=== PATIENT | male | born 1990 ===

== ENCOUNTER 2017-11-19 18:28 | Inpatient (IN) | payer OTHER ==
[~2017-11-19] VITALS: Ht 182.9 cm; Wt 109.0 kg
[2017-11-19] MEDS ORDERED: HYDROmorphone INJ 1 MG/ML SYR IV PRN (18:45)
--- NOTE | 2017-11-19 18:47 | EMERGENCY ROOM VISIT NOTE ---
History Report prepared by Anastacia: Jeremy Byrd Under the Supervision of: Dr. Reagan Daley M.D. First contact with patient: 18:28 Stated Complaint: FALL/ L LEG FX History of Present Illness The patient is a 27 year old male who presents to the Emergency Room via EMS after breaking his left leg just prior to arrival. The patient reports climbing down a rope pyramid and jumped off at about 3-4 feet high when he landed and the ankle broke. He states the pain is worse with movement. The patient reports he did not hit his head or lose consciousness and he denies neck or back pain. Prior to arrival he received 100mcg of Fentanyl and 4mg of Zofran. Source of History: patient Onset: Just prior to arrival Position: leg (left) Quality: other (fracture) Modifying Factors (Worsening): movement Associated Symptoms: No headache, No neck pain, No back pain Review of Systems See HPI for pertinent positives and negatives. A total of ten systems were reviewed and were otherwise negative. Past Medical & Surgical Medical Problems: (1) Left TIbia fracture (2) No Known Active Medical Problems Family History Patient reports no known family medical history. Social History Smoking Status: Never Smoker Occupation Status: [employer] student Current/Historical Medications No Active Prescriptions or Reported Meds Allergies Coded Allergies: No Known Allergies (Unverified , 11/19/17) Physical Exam Vital Signs Date Time Temp Pulse Resp B/P (MAP) Pulse Ox O2 Delivery O2 Flow Rate FiO2 11/19/17 19:47 94 145/76 100 Room Air 11/19/17 19:29 97 137/82 100 Room Air 11/19/17 19:02 97 11/19/17 18:53 37.3 99 142/86 100 Room Air Physical Exam Physical Exam GENERAL: He is oriented to person, place, and time. He appears well-developed and well-nourished. He does not appear distressed. HENT: Exam performed. Head: Normocephalic and atraumatic. Right Ear: External ear normal. No mastoid tenderness. Left Ear: External ear normal. No mastoid tenderness. Mouth/Throat: The oropharynx is clear and moist. No trismus in the jaw. No dental abscesses or uvula swelling. No oropharyngeal exudate or tonsillar abscesses. EYES: Conjunctivae and EOM are normal. Pupils are equal, round, and reactive to light. Right eye exhibits no discharge. Left eye exhibits no discharge. No scleral icterus. NECK: Normal range of motion. Neck supple. No JVD present. No spinous process tenderness present. No carotid bruit present. No rigidity. No tracheal deviation and normal range of motion present. No Brudzinski's sign and no Kernig 's sign noted. CV: Normal rate, regular rhythm, normal heart sounds and intact distal pulses. There is no peripheral edema. Palpable radial pulses bue. PULM/CHEST: Effort normal and breath sounds normal. No respiratory distress. No stridor. He has no wheezes. He has no rales. Chest Wall: He exhibits no tenderness. ABD: The abdomen is soft. Bowel sounds are normal. He has no distension. No mass is present. There is no tenderness. There is no rebound, no guarding, no Marion's sign and no tenderness at McBurney's point. Rovsig negative. MUSC/SKEL: Obvious deformity in LLE, mild tenting in LLE. Pelvis is stable. No pain on palpation to medial and lateral malleolus of LLE. DP and PT pulses palpable. LYMPH: No cervical adenopathy. NEURO: He is alert and oriented to person, place, and time. He has normal strength. No cranial nerve deficit or sensory deficit. Coordination and gait normal. GCS eye subscore is 4. GCS verbal subscore is 5. GCS motor subscore is 6. Cerebellar tests wnl. SKIN: Skin is warm and dry. He is not diaphoretic. PSYCH: He has a normal mood and affect. Behavior is normal. Judgment and thought content normal. Medical Decision & Procedures ER Provider Diagnostic Interpretation: Radiology results as stated below per my review and radiologist interpretation: L TIBIA/FIBULA 2 VIEWS ROUTINE CLINICAL HISTORY: Left lower leg pain status post trauma COMPARISON: None. DISCUSSION: There are acute fractures involving the mid shafts of the tibia and fibula. The distal fibular fragment is medially displaced by one full shaft width, and there is 12 mm of foreshortening. There is 24 degrees of vertex anterior angulation at the fracture site. The tibial fracture demonstrates 20 degrees of vertex anterior angulation. There is 7 mm of anterior displacement of the distal tibial fracture segment. IMPRESSION: Acute fractures involving the mid shafts of the tibia and fibula with mild vertex anterior angulation. Electronically signed by: Alexey Rogers M.D. 11/19/2017 7:27 PM Dictated Date/Time: 11/19/2017 7:24 PM PELVIS 1 OR 2 VIEW ROUTINE CLINICAL HISTORY: Pelvic pain status post trauma COMPARISON STUDY: No previous studies for comparison. FINDINGS: No fractures are visualized. There are no dislocations. There is no SI joint diastases. There is no symphysis diastases. IMPRESSION: No fractures identified. Electronically signed by: Alexey Rogers M.D. 11/19/2017 7:23 PM Dictated Date/Time: 11/19/2017 7:23 PM L KNEE 2 VIEWS ROUTINE CLINICAL HISTORY: Left knee pain status post trauma COMPARISON: None. DISCUSSION: No acute fractures or dislocations are visualized. THERE IS NO EVIDENCE FOR SOFT TISSUE SWELLING. IMPRESSION: No fractures identified. Electronically signed by: Alexey Rogers M.D. 11/19/2017 7:28 PM Dictated Date/Time: 11/19/2017 7:27 PM L ANKLE 2 VIEWS CLINICAL HISTORY: Left lower leg pain status post trauma COMPARISON: None. DISCUSSION: The superior margin of the film, fractures of the mid shafts of the tibia and fibula are visualized. There is mild vertex anterior angulation. No ankle fractures are visualized. The ankle mortise appears intact. IMPRESSION: 1. No ankle fractures identified 2. Fractures involving the mid shafts of the tibia and fibula. Electronically signed by: Alexey Rogers M.D. 11/19/2017 7:29 PM Dictated Date/Time: 11/19/2017 7:28 PM Medications Administered Medications (Trade) Dose Ordered Sig/Nazia Route Start Time Stop Time Status Last Admin Dose Admin Hydromorphone HCl (Dilaudid Inj) 1 mg ONE PRN IV 11/19/17 18:45 11/19/17 21:21 DC 11/19/17 18:42 1 MG Morphine Sulfate (MoRPHine SULFATE INJ) 4 mg NOW STAT IV 11/19/17 19:28 11/19/17 19:29 DC 11/19/17 20:09 4 MG Fentanyl Citrate (Fentanyl Inj) 100 mcg STK-MED ONCE .ROUTE 11/19/17 19:34 11/19/17 19:35 DC 11/19/17 19:45 100 MCG Dextrose/Sodium Chloride 1,000 ml @ 100 mls/hr Q10H IV 8/25/18 20:07 12/19/17 20:06 11/19/17 21:20 100 MLS/HR ED Course 182: The patient was evaluated in room B4B. A complete history and physical exam was performed. 184: Dilaudid 1mg IV 1904: X-rays show acute fracture of the tibia and fibula. I spoke with Dr. Uli Bateman and he is going to come take a look at the patient. 1927: Morphine Sulfate 4mg IV 1934: Dr. Uli Bateman is at bedside evaluating the patient. Dr. Mcnally states he will reduce the LLE and place the patient in splint. He will admit the patient for surgery tomorrow. 2029: Lower extremity was reduced and splinted by Dr. Mcnally. His vitals are stable. Medical Decision Dr. Uli Bateman is at bedside evaluating the patient. Dr. Mcnally states he will reduce the LLE and place the patient in splint. He will admit the patient for surgery tomorrow. Medication Reconcilliation Current Medication List: was personally reviewed by me Blood Pressure Screening Patient's blood pressure: Elevated blood pressure Blood pressure disposition: Elevated BP felt to be situational Consults Time Called: 1901 Consulting Physician: Dr. Uli Bateman Returned Call: 1904 Discussed the patient's case Dr. Uli Bateman. The patient will be evaluated for further treatment and disposition. Impression Primary Impression: Tibia fracture Additional Impression: Fibula fracture Scribe Attestation The scribe's documentation has been prepared under my direction and personally reviewed by me in its entirety. I confirm that the note above accurately reflects all work, treatment, procedures, and medical decision making performed by me. The chart was completed utilizing [employer] Speech voice recognition software. Grammatical errors, random word insertions, pronoun errors, and incomplete sentences are an occasional consequence of this system due to software limitations, ambient noise, and hardware issues. Any formal questions or concerns about the content, text, or information contained within the body of this dictation should be directly addressed to the physician for clarification. Departure Information Dispostion Being Evaluated By Surgeon Prescriptions No Active Prescriptions or Reported Meds Forms HOME CARE DOCUMENTATION FORM, IMPORTANT VISIT INFORMATION Problem Qualifiers Primary Impression: Tibia fracture Encounter type: initial encounter Tibia location: shaft Fracture type: closed Fracture morphology: other fracture Laterality: unspecified laterality Qualified Codes: S82.299A - Other fracture of shaft of unspecified tibia, initial encounter for closed fracture Additional Impression: Fibula fracture Encounter type: initial encounter Fibula location: shaft Fracture type: closed Fracture morphology: other fracture Laterality: unspecified laterality Qualified Codes: S82.499A - Other fracture of shaft of unspecified fibula, initial encounter for closed fracture
--- NOTE | 2017-11-19 19:24 | DIAGNOSTIC IMAGING REPORT ---
PELVIS 1 OR 2 VIEW ROUTINE CLINICAL HISTORY: Pelvic pain status post trauma COMPARISON STUDY: No previous studies for comparison. FINDINGS: No fractures are visualized. There are no dislocations. There is no SI joint diastases. There is no symphysis diastases. IMPRESSION: No fractures identified. Electronically signed by: Alexey Rogers M.D. 11/19/2017 7:23 PM Dictated Date/Time: 11/19/2017 7:23 PM
--- NOTE | 2017-11-19 19:28 | DIAGNOSTIC IMAGING REPORT ---
L TIBIA/FIBULA 2 VIEWS ROUTINE CLINICAL HISTORY: Left lower leg pain status post trauma COMPARISON: None. DISCUSSION: There are acute fractures involving the mid shafts of the tibia and fibula. The distal fibular fragment is medially displaced by one full shaft width, and there is 12 mm of foreshortening. There is 24 degrees of vertex anterior angulation at the fracture site. The tibial fracture demonstrates 20 degrees of vertex anterior angulation. There is 7 mm of anterior displacement of the distal tibial fracture segment. IMPRESSION: Acute fractures involving the mid shafts of the tibia and fibula with mild vertex anterior angulation. Electronically signed by: Alexey Rogers M.D. 11/19/2017 7:27 PM Dictated Date/Time: 11/19/2017 7:24 PM
--- NOTE | 2017-11-19 19:29 | DIAGNOSTIC IMAGING REPORT ---
L KNEE 2 VIEWS ROUTINE CLINICAL HISTORY: Left knee pain status post trauma COMPARISON: None. DISCUSSION: No acute fractures or dislocations are visualized. THERE IS NO EVIDENCE FOR SOFT TISSUE SWELLING. IMPRESSION: No fractures identified. Electronically signed by: Alexey Rogers M.D. 11/19/2017 7:28 PM Dictated Date/Time: 11/19/2017 7:27 PM
--- NOTE | 2017-11-19 19:30 | DIAGNOSTIC IMAGING REPORT ---
L ANKLE 2 VIEWS CLINICAL HISTORY: Left lower leg pain status post trauma COMPARISON: None. DISCUSSION: The superior margin of the film, fractures of the mid shafts of the tibia and fibula are visualized. There is mild vertex anterior angulation. No ankle fractures are visualized. The ankle mortise appears intact. IMPRESSION: 1. No ankle fractures identified 2. Fractures involving the mid shafts of the tibia and fibula. Electronically signed by: Alexey Rogers M.D. 11/19/2017 7:29 PM Dictated Date/Time: 11/19/2017 7:28 PM
[2017-11-19] MEDS: MoRPHine SULFATE 4 MG/ML 1 ML CARP\\VIAL IV STA ×2 (19:33→20:09)
[2017-11-19] MEDS ORDERED: FENTANYL CITRATE INJ 50 MCG/1 ML 2 ML VIAL ONE (19:34)
[2017-11-19] MEDS ORDERED: DiphenhydrAMINE HCL 50 MG/ML VIAL IV PRN (20:15)
[2017-11-19] MEDS ORDERED: ALUMINUM/MAGNESIUM SUSP 30 ML UDC PO PRN (20:15)
[2017-11-19] MEDS ORDERED: METOCLOPRAMIDE HCL INJ 5 MG/ML 2 ML VIAL IV PRN (20:15)
[2017-11-19] MEDS ORDERED: ONDANSETRON INJ 2 MG/ML 2 ML VIAL IV PRN (20:15)
[2017-11-19] MEDS ORDERED: ZOLPIDEM TARTRATE 5 MG TAB PO PRN (20:15)
[2017-11-19] MEDS ORDERED: PATIENT'S ALLERGY INFO NEEDS ENTERED SCH (20:30)
--- NOTE | 2017-11-19 20:36 | HISTORY & PHYSICAL EXAMINATION ---
DATE OF ADMISSION: 11/19/2017 CHIEF COMPLAINT: Left leg injury. 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 He was at a park and jumped about 4 feet off a jungle gym and landed on his left leg. It immediately gave way. He had acute onset of pain and felt a crack and a pop. EMS services were called and he was brought to Emergency Room where x-rays revealed the tib-fib fracture. We were consulted for evaluation. No other injuries. No preexisting knee or leg pain. PAST MEDICAL HISTORY: Significant for eczema. PAST SURGICAL HISTORY: Include: 1. Sebaceous cyst removal. 2. Mole removed from his forehead. ALLERGIES: None. MEDICATIONS: None. SOCIAL HISTORY: A 27-year-old male. He is from [place]. He has lived in this country for 5 years. He does not smoke. Occasional alcohol intake. FAMILY HISTORY: Noncontributory. REVIEW OF SYSTEMS: Negative for diabetes, neurologic problems, vascular problems, or bleeding disorders. He denies any chest pain. No shortness of breath. No other injuries. PHYSICAL EXAMINATION: VITAL SIGNS: Temperature is 37.3. Vital signs stable. GENERAL: This is a pleasant 27-year-old male lying in bed. He is obviously in moderate discomfort. As long as he does not move, does not seem to be hurting too bad. HEENT: Benign. NECK: Supple. No lymphadenopathy. LUNGS: Clear to auscultation. HEART: Has a regular rate and rhythm. ABDOMEN: Soft, nontender, nondistended. EXTREMITIES: Grossly neurovascularly intact except as follows: General musculoskeletal exam reveals full and painless range of motion of the cervical, thoracic, and lumbar spine. He has got painless range of motion of both shoulders, wrist, elbows, and hands and right lower extremity. Examination of the left lower extremity reveals his foot to be externally rotated. There is a moderate amount of swelling in the mid aspect of his tib-fib area. Skin is intact. His compartments are pretty soft and supple. There is moderate swelling, but no tenseness. He can dorsiflex and plantarflex his toes appropriately with some mild pain. No signs of compartment issues. He is neurologically intact. IMAGING: X-rays of the tib-fib were reviewed. It shows a displaced tib-fib fracture. He has a fairly transverse mid to distal third fracture with complete displacement and angulation. ASSESSMENT: A 27-year-old male with a displaced midshaft tib-fib fracture. Fairly transverse fracture and fairly unstable, fairly low energy soft tissue injury. PLAN: We talked about treatment. We are going to do a closed reduction here in the ER and put him in a splint. His last food was about 4:30, which was just about 2 hours ago. We will splint this and the plan on fixing this tomorrow. We talked about operative and nonoperative treatments and he is very interested in proceeding with surgical management. We will take him to the operating room and do IM nailing of a left tib-fib fracture. The risks and benefits of this procedure were explained to the patient including, but not limited to DVT, PE, , infection, neurological injury, vascular injury, bleeding problem, pain, limited range of motion, stiffness, failure to relieve symptoms, incomplete relief of symptoms, need for further surgery in future, fracture, leg length inequality, nerve palsy, nonunion, malunion, etc. The patient understands and desires to proceed. Informed consent was obtained. We will proceed with DVT prophylaxis including thigh-high TEDs and SCDs, and aspirin postoperatively. We will keep him n.p.o. after midnight. PROCEDURE: The patient was given 100 mcg of fentanyl. A closed reduction was performed. A well-padded posterior and stirrup splints were applied. The patient tolerated the procedure well with no complications. JOSIE
[2017-11-19 21:20] VITALS: BP 120/75; PULSE 103; TEMP 37.3; O2SAT 98; Ht 182.9 cm; Wt 109.0 kg
[2017-11-19] MEDS: D5W AND 1/2NSS 1,000 ML IV SCH (21:20)
[2017-11-19] MEDS: HYDROmorphone INJ 0.5 MG/0.5 ML SYR IV PRN ×2 (22:05→23:30)
[2017-11-19 22:51] VITALS: BP 138/77; PULSE 93; PULSE 97; TEMP 37.1; O2SAT 98
[2017-11-19] MEDS: DOCUSATE SODIUM 100 MG CAP PO SCH (23:30)
[2017-11-20] VITALS (9 sets, daily range): BP systolic 117–153; BP diastolic 69–85; PULSE 77–93; TEMP 37–37.3; O2SAT 96–100
[2017-11-20] MEDS: HYDROmorphone INJ 0.5 MG/0.5 ML SYR IV PRN ×2 (01:54→05:12)
[2017-11-20] MEDS ORDERED: CEFAZOLIN 2000MG IV PUSH 15 ML IV SCH (06:00)
[2017-11-20] MEDS: D5W AND 1/2NSS 1,000 ML IV SCH ×2 (06:34→21:03)
[2017-11-20] MEDS ORDERED: FENTANYL CITRATE INJ 50 MCG/1 ML 2 ML VIAL ONE ×4 (07:04→09:49)
[2017-11-20] MEDS ORDERED: PROPOFOL IV EMULSION 10 MG/ML 20 ML VIAL ONE (07:04)
[2017-11-20] MEDS ORDERED: MIDAZOLAM HCL 1 MG/ML 2ML VIAL ONE (07:04)
[2017-11-20] MEDS ORDERED: LIDOCAINE HCL 2% 2 ML VIAL (20MG/ML) ONE (07:04)
--- NOTE | 2017-11-20 07:18 | History & Physical Bridge Note ---
H&P Re-Evaluation Bridge Note: I have examined the patient, reviewed the History & Physical and in the interval since the performance of the History & Physical I have noted the following changes of clinical significance: No changes noted
[2017-11-20] MEDS ORDERED: BUPIVACAINE/EPINEPHRINE 0.5% MPF 1:200,000 30 ML VIAL ONE (07:36)
[2017-11-20] MEDS ORDERED: MoRPHine SULFATE PF 1 MG/ML 10 ML AMP/VIAL ONE (07:50)
--- NOTE | 2017-11-20 08:18 | PROGRESS NOTE ---
DATE: 11/20/2017 SUBJECTIVE: A 27-year-old gentleman admitted with a left tib-fib fracture. He is set for surgery this morning. No new complaints. Pain is manageable overnight. OBJECTIVE: VITAL SIGNS: Temperature 37.1. Vital signs stable. GENERAL: Reveals a pleasant, middle-aged male. He is lying in bed and looks quite comfortable. EXTREMITIES: Examination of the left leg reveals splint to be in place. The leg is well aligned. He can dorsiflex and plantarflex his toes appropriately. No particular pain with this. He is neurologically intact. He has got brisk refill. ASSESSMENT: A 27-year-old gentleman with a left displaced tibia-fibula fracture. PLAN: We will take him to the operating room today and do an IM nailing. There are no signs of compartment issues. Will likely observe him 24 hours postop and then discharge him after therapy following day.
[2017-11-20] MEDS ORDERED: ONDANSETRON INJ 2 MG/ML 2 ML VIAL ONE (09:24)
[2017-11-20] MEDS ORDERED: ROCURONIUM BROMIDE 10 MG/ML 5 ML VIAL ONE (09:25)
[2017-11-20] MEDS ORDERED: GLYCOPYRROLATE INJ 0.2 MG/ML VIAL ONE (09:25)
[2017-11-20] MEDS ORDERED: NEOSTIGMINE METHYLSULFATE 5 MG/5 ML SYR ONE (09:25)
[2017-11-20] MEDS ORDERED: DEXAMETHASONE SOD INJ 4 MG/ML VIAL ONE (09:25)
--- NOTE | 2017-11-20 09:34 | DIAGNOSTIC IMAGING REPORT ---
L TIBIA/FIBULA 2 VIEWS ROUTINE HISTORY: 27 years-old Male ORIF LEFT TIB/FIB status post ORIF of the left tibia COMPARISON: Left tibia and fibula radiographs 11/19/2017 TECHNIQUE: 7 spot fluoroscopic images of the left tibia and fibula were obtained utilizing 78.8 seconds fluoroscopy time FINDINGS: Status post placement of an intramedullary katty with two proximal and two distal fixation screws about the tibia fixating the previously described complete angulated and displaced fracture of the mid to distal tibial diaphysis. There is improved alignment of the tibial fracture with mild persistent posterior and lateral displacement/angulation. There is improved alignment of the fracture about the mid to distal diaphyseal fibula with mild persistent apex posterior lateral angulation, and mild posterior and lateral displacement. IMPRESSION: ORIF changes of the tibia with improved alignment of the tibial and fibular fractures. The above report was generated using voice recognition software. It may contain grammatical, syntax or spelling errors. Electronically signed by: Bakari Sampson M.D. 11/20/2017 9:33 AM Dictated Date/Time: 11/20/2017 9:30 AM
--- NOTE | 2017-11-20 09:37 | [facility] Post Operative Brief Note ---
Immediate Operative Summary Operative Date Nov 20, 2017. Pre-Operative Diagnosis displaced midshaft tib-fib fracture - Left Post-Operative Diagnosis displaced midshaft tib-fib fracture - Left Procedure(s) Performed Left IM Nail of Tibia Surgeon Dr. Jose Miguel Mcnally Lubricating Engineer Surgeon(s) Malachi Olivas PA-C Estimated Blood Loss 50mL Findings Consistent with Post-Op Diagnosis Fluids (cc crystalloids) 1000 cc Specimens none per surgeon Drains None Anesthesia Type General Complication(s) none Disposition Accompanied Pt To Recover: no Disposition: Recovery Room / PACU Overlapping Procedure I was present for: the critical portions of procedure. I was immediately available: during the entire case
[2017-11-20] MEDS ORDERED: BISACODYL 10 MG SUPP PR PRN (09:45)
[2017-11-20] MEDS ORDERED: CEFAZOLIN IV 2,000 MG in DEXTROSE 5% 50ML 50 ML IV SCH (09:45)
[2017-11-20] MEDS ORDERED: FENTANYL CITRATE INJ 50 MCG/1 ML 2 ML VIAL IV PRN (09:45)
[2017-11-20] MEDS ORDERED: MAGNESIUM HYDROXIDE SUSP 30 ML UDC PO PRN (09:45)
[2017-11-20] MEDS ORDERED: EpHEDrine SULFATE INJ 50 MG/ML AMP IV PRN (09:45)
[2017-11-20] MEDS ORDERED: ATROPINE SULFATE 0.1 MG/ML 5ML SYR IV PRN (09:45)
[2017-11-20] MEDS ORDERED: PROMETHAZINE HCL INJ 6.25 MG in SODIUM CHLORIDE 0.9% 50ML 50 ML IV PRN (09:45)
[2017-11-20] MEDS ORDERED: DiphenhydrAMINE HCL 50 MG/ML VIAL IV PRN (09:45)
[2017-11-20] MEDS ORDERED: ALUMINUM/MAGNESIUM/SIMETH (MAALOX MAX) 30 ML UDC PO PRN (09:45)
[2017-11-20] MEDS ORDERED: HYDROmorphone INJ 1 MG/ML SYR IV PRN (09:45)
[2017-11-20] MEDS ORDERED: METOCLOPRAMIDE HCL INJ 5 MG/ML 2 ML VIAL IV PRN (09:45)
[2017-11-20] MEDS ORDERED: ZOLPIDEM TARTRATE 5 MG TAB PO PRN (09:45)
[2017-11-20] MEDS ORDERED: ONDANSETRON INJ 2 MG/ML 2 ML VIAL IV PRN ×2 (09:45)
[2017-11-20] MEDS ORDERED: RXC5 PO (10:06)
[2017-11-20] MEDS ORDERED: ACET-24 PO (10:06)
[2017-11-20] MEDS ORDERED: ASPEC325 PO (10:06)
--- NOTE | 2017-11-20 10:09 | Discharge Instructions ---
Discharge Instructions Date of Service Nov 20, 2017. Admission Reason for Admission: Left Tibia Fracture Discharge Discharge Diagnosis / Problem: Left Tibia and Fibula Fracture Discharge Goals Goal(s): Decrease discomfort, Improve function, Improve disease control, Therapeutic intervention Activity Recommendations Activity Limitations: per Instructions/Follow-up section Weightbearing Status: Left non-weightbearing . Instructions / Follow-Up Instructions / Follow-Up MEDICATIONS: * Resume previous medications unless instructed otherwise by your surgeon. * Always take pain medication on a full stomach or with food to avoid upset stomach. * Do not drink alcohol or drive while taking narcotics. * Ibuprofen or Tylenol may be taken if narcotic not needed. SPECIAL CARE INSTRUCTIONS: Keep splint and bandage on and in place until return to clinic appointment. Call for follow-up for 2 weeks post-surgery. Call physician if chills or temperature rises above 102 degrees or pain unrelieved by prescribed pain medications. Office [phone] Current Hospital Diet Patient's current hospital diet: Regular Diet Discharge Diet Recommended Diet: Regular Diet Procedures Procedures Performed: Left IM Nail of Tibia Pending Studies Studies pending at discharge: no Medical Emergencies . Who to Call and When: Medical Emergencies: If at any time you feel your situation is an emergency, please call 911 immediately. . Non-Emergent Contact Non-Emergency issues call your: Surgeon . "Provider Documentation" section prepared by Jose Miguel Mcnally. .
--- NOTE | 2017-11-20 10:17 | Anesthesiology Progress Note ---
Anesthesia Post Op Note Date & Time Nov 20, 2017 at 10:16 Vital Signs Pain Intensity: 3 Vital Signs Past 12 Hours Date Time Temp Pulse Resp B/P (MAP) Pulse Ox O2 Delivery O2 Flow Rate FiO2 11/20/17 10:10 89 18 142/77 100 Nasal Cannula 2 11/20/17 10:00 79 20 141/80 100 Nasal Cannula 2 11/20/17 09:50 83 24 144/74 100 Nasal Cannula 2 11/20/17 09:42 36.1 90 16 149/85 100 Nasal Cannula 2 11/20/17 06:51 37.1 85 18 132/81 (98) 98 Room Air 11/19/17 22:51 37.1 93 18 138/77 (97) 98 Room Air 11/19/17 22:51 37.1 97 18 138/77 (97) 98 Room Air Notes Mental Status: alert / awake / arousable, participated in evaluation Pt Amnestic to Procedure: Yes Nausea / Vomiting: adequately controlled Pain: adequately controlled Airway Patency, RR, SpO2: stable & adequate BP & HR: stable & adequate Hydration State: stable & adequate Anesthetic Complications: no major complications apparent
--- NOTE | 2017-11-20 10:46 | OPERATIVE REPORT ---
DATE OF OPERATION: 11/20/2017 SURGEON: Jose Miguel Mcnally MD TRANSPLANTER ORCHID: Stan Olivas PA-C PREOPERATIVE DIAGNOSIS: Left displaced slightly comminuted tibia-fibula fracture. POSTOPERATIVE DIAGNOSIS: Left displaced slightly comminuted tibia-fibula fracture. PROCEDURE PERFORMED: Left IM nailing of a left tib-fib fracture. COMPLICATIONS: None. ESTIMATED BLOOD LOSS: 50 mL. FLUID REPLACEMENT: 1000 mL crystalloid fluid replacement. ANESTHESIA: General. SPECIMENS: None. OPERATIVE INDICATIONS: The patient is a 27-year-old male, 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 He jumped about 4 feet off of a jungle gym and felt his leg snapped. He had no preexisting tibial pain. He is brought to the Emergency Room where x-rays revealed displaced comminuted midshaft tib-fib fracture. He is indicated for surgical management. OPERATIVE IMPLANTS: Operative implants consisted of: 1. A Synthes size 360 mm x 11 mm titanium tibial nail. 2. A 5.0 interlocking screws x4, two of 40 mm length, one of 32 mm length, one of 38 mm length. 3. A 10 mm end cap. OPERATIVE PROCEDURE: The patient was taken to the operating room, identified, and placed on the operating table in supine position. All contact areas were appropriately padded. IV antibiotics were provided by anesthesia team. A general anesthetic was implemented by anesthesia team. A left thigh tourniquet was then placed, but not used throughout the case. The left lower extremity splint was then removed. I then shaved the areas at the incision site with clippers. I then scrubbed the entire leg with Hibiclens and then prepped with ChloraPrep and then draped the left leg in a sterile fashion. A longitudinal incision was made from the inferior pole of the patella to just medial to the tibial tubercle. Sharp dissection was carried through the subcutaneous tissue down to the level of the extensor mechanism. Some subcutaneous mobilization was then performed of the tissues. I then made a medial parapatellar tendon incision. We did not enter the joint. I removed some of the fat pad. X-ray was brought in. I placed a guidewire just over the anterior apex of the tibia in line with the intramedullary canal. I advanced this down the canal under fluoroscopic guidance. I then over reamed this with a 12 mm reamer for a distance of about 10 cm. I then removed this and placed a ball-tipped guidewire down the IM canal. We reduced the fracture and placed the guidewire in the central aspects of the distal aspect of the tibia. I then reamed the tibia, beginning with a size 8.5 and progressing up to a 12. We got good chatter with the 12 reamer. I did measure for length and a 360 mm nail was selected. I wanted to make sure it was not too prominent proximally. We then placed a 360 mm x 11 mm tibial nail over the guidewire, removed the guidewire. I tapped this into optimal position. I did after countersink quite a distance to get a good fixation distally. Once optimal position was assured fluoroscopically, I proceeded with interlocking. Using the proximal interlocking jig, I placed 2 proximal interlocking screws after making a stab incision in the standard fashion. Some final x-rays were obtained. I then removed the proximal interlocking device and placed a 10 mm end cap. Some final x-rays proximally were obtained. I then examined the fracture site and it was nicely approximated. There was some comminution which we were aware of. Attention was then drawn toward distal interlocking. Using the perfect [place] technique, I placed 2 distal interlocking screws after making stab incisions and then drilling under fluoroscopic guidance. The 2 distal interlocking screws were placed and verified fluoroscopically. Some final x-rays were obtained. Attention was then drawn toward closing. All wounds were irrigated with copious amounts of normal saline. I did inject locally with 30 mL of 0.5% Marcaine with epinephrine. The parapatellar tendon incision was then closed with #1 Vicryl suture in a [id number] fashion. Subcutaneous tissues of all wounds were closed with 2-0 Dexon suture in buried interrupted fashion. Skin was then closed with 3-0 nylon suture. The leg was then cleaned and dried and a sterile dressing of Xeroform, 4 x 4's, ABD pad, and a sterile cast padding, followed by a well-padded posterior and stirrup splint were applied. The patient was then brought out of general anesthesia and transferred to the recovery room in stable condition. The patient tolerated the procedure well with no complication. All needle and sponge counts were correct at the end of the operation. I attest to the content of the Intraoperative Record and any orders documented therein. Any exceptions are noted below. JOSIE
[2017-11-20] MEDS: PANTOprazole SOD 40 MG TAB PO SCH (11:36)
[2017-11-20] MEDS: OXYCODONE HCL IR 5 MG TAB (IMMEDIATE RELEASE) PO PRN (12:19)
[2017-11-20] MEDS: DOCUSATE SODIUM 100 MG CAP PO SCH ×3 (13:45→21:04)
[2017-11-20] MEDS: ACETAMINOPHEN 500 MG TAB PO SCH ×2 (13:46→21:04)
[2017-11-20] MEDS: FERROUS GLUCONATE 324 MG TAB PO SCH ×2 (13:46→18:01)
[2017-11-20] MEDS: KETOROLAC TROMETHAMINE 30 MG/ML VIAL IV. SCH ×3 (13:48→23:59)
[2017-11-20] MEDS: CEFAZOLIN IV 2,000 MG in SYRINGE 0 ML IV SCH ×2 (16:12→23:59)
[2017-11-20] MEDS: D5W AND 1/2NSS + 20MEQ KCL 1,000 ML IV SCH ×2 (19:24→21:00)
[2017-11-20] MEDS ORDERED: SENNA 8.6 MG TAB PO SCH (21:00)
[2017-11-20] MEDS: ASPIRIN 81 MG ECTAB PO SCH (21:04)
[2017-11-21] MEDS: OXYCODONE HCL IR 5 MG TAB (IMMEDIATE RELEASE) PO PRN (02:23)
[2017-11-21 03:54] VITALS: BP 119/72; PULSE 75; TEMP 36.8; O2SAT 97
[2017-11-21] MEDS: D5W AND 1/2NSS + 20MEQ KCL 1,000 ML IV SCH (05:34)
[2017-11-21] MEDS: KETOROLAC TROMETHAMINE 30 MG/ML VIAL IV. SCH ×2 (05:34→13:01)
[2017-11-21] MEDS: ACETAMINOPHEN 500 MG TAB PO SCH ×2 (05:35→14:12)
[2017-11-21] MEDS: D5W AND 1/2NSS 1,000 ML IV SCH ×2 (07:35→12:59)
--- NOTE | 2017-11-21 08:01 | PROGRESS NOTE ---
DATE: 11/21/2017 SUBJECTIVE: A 27-year-old gentleman postop day 1 from IM nailing of a left tib-fib fracture. He is doing pretty well. Pain is markedly improved. No chest pain or shortness of breath. Just a little tingling in his toes. OBJECTIVE: VITAL SIGNS: Temperature is 36.8. Vital signs stable. PHYSICAL EXAMINATION: GENERAL: Physical examination reveals a pleasant, middle-aged male. He is lying in bed, looks comfortable. EXTREMITIES: Examination of the left leg reveals the dressing to be clean, dry and intact. The left foot is well aligned. He can flex and extend his toes without significant pain. His sensory exam is intact to light touch. He has got brisk refill. ASSESSMENT: A 27-year-old gentleman postoperative day 1 from intramedullary nailing of left tibia-fibula fracture, doing well. His pain is controlled. He is neurologically intact. PLAN: 1. DVT prophylaxis including thigh-high TEDs, SCDs, and aspirin twice a day. 2. PT and OT. We are going to get him crutches with some instructions. He will be nonweightbearing for the next 2 weeks. 3. Pain control, doing well with current pain regimen. 4. Disposition: Plan to discharge to home after therapy today.
[2017-11-21 08:15] VITALS: BP 136/86; PULSE 82; TEMP 36.6; O2SAT 97
[2017-11-21] MEDS ORDERED: MULTIVITAMIN TAB PO SCH (09:00)
[2017-11-21] MEDS ORDERED: PANTOprazole SOD 40 MG TAB PO SCH (09:00)
[2017-11-21] MEDS: DOCUSATE SODIUM 100 MG CAP PO SCH ×2 (09:00→09:02)
[2017-11-21] MEDS: ASPIRIN 81 MG ECTAB PO SCH (09:02)
[2017-11-21] MEDS: FERROUS GLUCONATE 324 MG TAB PO SCH ×2 (09:02→13:00)
[2017-11-21] MEDS: PANTOprazole SOD 40 MG TAB PO SCH (09:02)
[2017-11-21 09:15] VITALS: O2SAT 97
--- NOTE | 2017-11-21 10:34 | Anesthesiology Progress Note ---
Anesthesia Post Op Note Date & Time Nov 21, 2017 at 10:33 Vital Signs Pain Intensity: 3.0 Vital Signs Past 12 Hours Date Time Temp Pulse Resp B/P (MAP) Pulse Ox O2 Delivery O2 Flow Rate FiO2 11/21/17 09:15 97 Room Air 11/21/17 08:15 36.6 82 16 136/86 (103) 97 Room Air 11/21/17 07:25 Room Air 11/21/17 03:54 36.8 75 16 119/72 (88) 97 Room Air 11/21/17 00:00 Room Air 11/20/17 23:05 37.0 84 18 117/73 (88) 97 Room Air Notes Out of room walking halls with PT
[2017-11-21 11:06] VITALS: BP 136/86; PULSE 82; TEMP 36.6; O2SAT 97
[2017-11-21 14:10] VITALS: BP 130/88; PULSE 84; TEMP 36.7; O2SAT 96
== END 2017-11-21 15:05 | disposition home or self-care (01) | DRG 494 ==
LOC: C.EDB 18:31 → C.MSW 20:12 → ENRESERV 20:24
PROVIDERS: ADMIT Orthopaedic Surgery Sports Medicine; ATTEND Orthopaedic Surgery Sports Medicine
PROC: 0QSJXZZ Reposition Right Fibula, External Approach (ICD-10-PCS; 2017-11-19)
PROC: 0QSHXZZ Reposition Left Tibia, External Approach (ICD-10-PCS; 2017-11-19)
PROC: 0QSJ0ZZ Reposition Right Fibula, Open Approach (ICD-10-PCS; principal; 2017-11-20 07:30)
PROC: 0QSH06Z Reposition Left Tibia with Intramedullary Internal Fixation Device, Open Approach (ICD-10-PCS; principal; 2017-11-20 07:30)
DX: S82.252A Displaced comminuted fracture of shaft of left tibia, initial encounter for closed fracture (principal); S82.452A Displaced comminuted fracture of shaft of left fibula, initial encounter for closed fracture; W17.89XA Other fall from one level to another, initial encounter; Y93.39 Activity, other involving climbing, rappelling and jumping off; Y99.8 Other external cause status